=== PATIENT | female | born 1965 | race Caucasian/White ===

== ENCOUNTER 2018-01-05 05:37 | Inpatient (IN) ==
[2018-01-05] MEDS ORDERED: Lactated Ringers 1,000 ML PRIMARY IV ONE ×2 (05:55→06:00)
[2018-01-05] MEDS ORDERED: LIDOCAINE W/ SODIUM BICARB 0.5 ML SYR ONE (05:55)
[2018-01-05] MEDS ORDERED: ceFAZolin Inj 2gm (Premix) 2 GM/50 ML BAG IV ONE ×2 (06:00→07:29)
[2018-01-05] MEDS ORDERED: Nasal Sanitizer POPSWAB ampule 3 AMP (Nozin) PREOP DOSE ENOS SCH (06:00)
[2018-01-05] MEDS ORDERED: LIDOCAINE W/ SODIUM BICARB 0.5 ML SYR SUBD ONE (06:00)
[2018-01-05] MEDS ORDERED: Vancomycin Inj 1gm vial ONE (06:10)
[2018-01-05] MEDS ORDERED: Sodium Chloride 0.9% 250 ML ONE ×2 (06:10→06:11)
[2018-01-05] MEDS ORDERED: MIDAZOLAM 5 MG/1 ML ONE (07:15)
[2018-01-05] MEDS ORDERED: REMIFENTANIL 1 MG/1 ML IV ONE (07:16)
[2018-01-05] MEDS ORDERED: fentaNYL Inj 100 MCG/2 ML VIAL ONE (07:16)
[2018-01-05] MEDS ORDERED: LIDOCAINE MPF 2% - 5 ML (20 MG/1 ML) ONE (07:21)
[2018-01-05] MEDS ORDERED: Propofol 1,000 MG/100 ML VIAL IV ONE ×2 (07:23→08:53)
[2018-01-05] MEDS ORDERED: ePHEDrine Inj 50 MG/ML AMP ONE (07:48)
[2018-01-05] MEDS ORDERED: GLYCOPYRROLATE 0.2 MG/1 ML VIAL ONE (07:49)
[2018-01-05] MEDS ORDERED: BUPIVACAINE 0.25% W/ EPI - 10 ML VIAL ONE ×2 (08:15→08:43)
[2018-01-05] MEDS ORDERED: Sodium Chloride 0.9% vial 10 ML ONE (08:16)
[2018-01-05] MEDS ORDERED: PHENYLEPHRINE 10,000 MCG/1 ML VIAL ONE (08:16)
[2018-01-05] MEDS ORDERED: BACITRACIN 50,000 UNIT VIAL IRRIG ONE (08:16)
[2018-01-05] MEDS ORDERED: Hetastarch 6% + NS 500 ML IV ONE (08:32)
[2018-01-05] MEDS ORDERED: Ondansetron ODT Tab 8 MG TAB PO PRN (09:22)
[2018-01-05] MEDS ORDERED: ONDANSETRON 4 MG/2 ML VIAL IVP PRN ×3 (09:22→10:42)
[2018-01-05] MEDS ORDERED: LIDOCAINE W/ SODIUM BICARB 0.5 ML SYR SUBD PRN (09:22)
[2018-01-05] MEDS ORDERED: Prochlorperazine Edisylate Inj 10mg/2ml vial IVP PRN ×2 (09:22→10:42)
[2018-01-05] MEDS ORDERED: HYDROmorphone 2 MG/1 ML IVP PRN ×2 (09:22→10:42)
--- NOTE | 2018-01-05 09:27 | CRNA.PROGR ---
Anesthesia Time - Procedure/Recovery Time Start Date: 01/05/18 End Date: 01/05/18 Anesthesia : Time In: 07:36 Anesthesia : Time Out: 09:45 Anesthesia : Total Time: 129 - Total Anesthesia Time Total Anesthesia Time (minutes): 129 - Other Weight: 69.2 kg Height: 5 ft Body Mass Index (BMI): 29.7 Physical Status: P3 Anesthesia Type: General Anesthesia : ET, Other (NIMS monitoring so- Demetrio/ Propofol)
[2018-01-05] MEDS ORDERED: Lactated Ringers 1,000 ML PRIMARY IV SCH (09:30)
[2018-01-05] MEDS ORDERED: MAGNESIUM 400 MG/5 ML - 30 ML (MILK OF MAGNESIA) PO PRN ×2 (09:45→10:42)
[2018-01-05] MEDS ORDERED: MAGNESIUM CITRATE 296 ML SOLUTION PO PRN ×2 (09:45→10:42)
[2018-01-05] MEDS ORDERED: PROMETHAZINE 25 MG/1 ML VIAL IM PRN ×2 (09:45→10:42)
[2018-01-05] MEDS ORDERED: HYDROmorphone 2 MG TABLET PO PRN ×5 (09:45→19:13)
[2018-01-05] MEDS ORDERED: Vancomycin-PHA to Dose IV SCH ×2 (09:45→10:45)
[2018-01-05] MEDS ORDERED: Ondansetron ODT Tab 4 MG TAB PO PRN ×2 (09:45→10:42)
[2018-01-05] MEDS ORDERED: Metoclopramide Inj 10 MG/2 ML VIAL IVP PRN ×2 (09:45→10:42)
[2018-01-05] MEDS ORDERED: ceFAZolin Inj 1 GM in Sodium Chloride 0.9% 100 ML IV SCH (09:45)
[2018-01-05] MEDS ORDERED: BISACODYL 5 MG TABLET PO PRN ×2 (09:45→10:42)
[2018-01-05] MEDS ORDERED: Fleet Enema 133ml RECTAL PRN ×2 (09:45→10:42)
[2018-01-05] MEDS ORDERED: DOCUSATE 100 MG CAPSULE PO PRN ×2 (09:45→10:42)
[2018-01-05] MEDS ORDERED: ACETAMINOPHEN 325 MG TABLET PO PRN ×2 (09:45→10:42)
--- NOTE | 2018-01-05 10:34 | GEN.OPNOTE ---
Operative Note Surgery Date: 01/05/18 Preoperative Diagnosis: Left sacroilitis/Left SI joint dysfunction Postoperative Diagnosis: Same Procedure: Left percutaneous SI joint fusion using SI Bone system (CPT code: 79511) Surgeon: Umesh Bernardo MD [employer] Supervisor: SUDHIR You Anesthesia Provider: Lilly Molina CRNA Anesthesia Type: General Estimated Blood Loss (mL): 5 Fluids: See Anesthesia Operative Report Pathology: None Indications: Left sacroilitis/Left SI joint dysfunction. Findings: None Complications: None Operative Summary: Ms. Hanley was met in the preoperative area. Her surgical history and physical was updated. The procedure to be performed was confirmed with Ms. Hanley and family members. This matched what was written on the patient's consent form. Any questions that Ms. Hanley or family members had were answered before she was taken back to the operating room suite. Ms. Hanley was brought back to the operating room suite. She was put under general anesthesia and intubated by the anesthesia staff. She had a Romano catheter placed or bladder for the procedure. She had pneumatic compression hose placed on her lower legs bilaterally. She was rolled over onto the Skytron bed in a prone position onto blanket rolls. Her arms were gently positioned upwards with her shoulders abducted less than 90. Her arms were well-padded with foam padding on top of the padding of the surgical armboards. The region of her chest and axilla was checked bilaterally to make sure that there were no pressure points over the region of the brachial plexus bilaterally. Her breasts were checked be below the chest roll with no pressure points over the nipples. Her Romano catheter was checked be free from kinks. Her pneumatic compression hose was attached to a pneumatic compression device. The C-arm fluoroscopy unit was used to help localize the skin incision for the approach the intended surgical procedure. A line was drawn on the skin parallel and over the sacral alar and another line was drawn essentially perpendicular to this along the midline of the upper to mid sacrum. The's intended skin incision was marked along the second line approximately 1 cm dorsal and caudal to the intersection of the 2 lines and extending 3 cm along that line. Ms. Hanley was prepped and draped in the usual and standard fashion. She was given 2 g of Ancef and 1 g of vancomycin IV for perioperative antibiosis. The intended skin incision was injected subcutaneously with quarter percent Marcaine with 1 in 200,000 epinephrine. 18 mL of local anesthetic was used. The incision was incised with a 10 blade scalpel and all dermal and superficial subcutaneous bleeding points coagulated with bipolar cautery. The first shot sharp guidepin was advanced to the lateral aspect of the ilium. This guidepin was positioned appropriately for the placement of the first cage placement using multiple Spot fluoroscopy. Once in proper position the guidepin was advanced into the ilium gently with a mallet. An inlet view fluroscopic image was then obtained to confirm the proper checked trajectory for the advancement of the guidepin across the SI joint. The guidepin was then advanced across the SI joint using multiple Spot spot fluoroscopy images in outlet view. The soft tissue dissector was then used to dissect the soft tissue over the guidepin down to the lateral aspect of the ilium. The cage was then sized with the "credit card" measurement device. The soft tissue protector was then placed over the guidepin and advanced to the lateral aspect of the ilium. The drill was then placed over the guidepin and drilling was performed to just past the SI joint into the lateral aspect of the sacrum under multiple Spot fluoroscopic images. The broach was then placed over the guidepin and the broach was gently tapped across the SI joint using the mallet. The appropriate size cage, a 7mm x 50 mm SI Bone titanium cage was then selected and filled with Ann BIO DBM plus putty with cancellous chips. The cage was then advanced over the guidewire and gently tapped into appropriate position under multiple spot fluoroscopic images in the outlet view. The cage obtained good purchase in the iliac and sacral bone across the sacroiliac joint. Final views of the cage were taken in the lateral inlet and outlet views. The guidepin locater for the placement of the second guidepin was then placed over the first guidepin. The second guidepin was then advanced to the lateral aspect of the sacrum. The entry point for the second guidepin was then localized under multiple Spot lateral fluoroscopic images. This guidepin was then gently advanced into the lateral aspect of the ilium using the mallet with gentle taps. An inlet view was used to confirm the appropriate trajectory across the SI joint prior to advancing the second guidepin further. Once the proper trajectory was assured in the inlet view the second guidepin was advanced across the sacroiliac joint under multiple Spot fluoroscopic images in the outlet view. Once advanced to its final desired position the soft tissue dissector was then placed over the second guidepin and advanced to the lateral aspect of the ilium and the soft tissue was dissected. The soft tissue protector was then placed over the guidepin and advanced to the lateral aspect the ilium. The appropriate size for the second cage was then measured. The hand-held drill was then used to drill just across the SI joint which was performed under multiple spot fluoroscopic images. The broach was then gently tamped across the SI joint using multiples fluoroscopic images. The appropriate size cage, a 7 mm x 45 mm SI bone titanium cage was selected and filled with OxThera BIO DBM plus putty with cancellous chips. The cage was then advanced over the guidepin and gently tapped into its final position under multiple Spot fluoroscopic images. The cage obtained good purchase in the iliac and sacral bone across the sacral iliac joint. Final fluoroscopic images were taken of the cage and lateral inlet and outlet views. Although placement of the third cage was considered, it was decided by looking at the imaging studies that there was no room for the placement of a third cage and since the first two cages obtained good purchase across the sacroiliac joint it was felt that good fixation of the sacroiliac joint had been obtained with the two cages placed. The surgical site was copiously irrigated with bacitracin irrigation. The closure portion of the procedure was then begun. The superficial subcutaneous tissue and dermis was closed with 2-0 Vicryl suture in an interrupted fashion. The Ioban drape was pulled back the skin edges and the final layer of closure was performed with surgical stainless steel jose. The incision was cleansed with bacitracin soaked sponge and dried with sterile dry sponge and then covered with a Mepilex dressing. All surgical drapes removed from Ms. Hanley. She was carefully rolled over onto the PACU stretcher. She was taken the recovery room in stable condition. All surgical counts reported as correct by the scrub and circulating personnel.
[2018-01-05] MEDS: HYDROmorphone 2 MG/1 ML IVP PRN ×2 (10:53→15:06)
--- NOTE | 2018-01-05 12:20 | CONSULT ---
Consult Note - Consult Reason for Consult: PostOp Consulation : Neuro Requesting Physician: rupinder Primary Care Provider: CHASE ARROYO - History of Present Illness History of Present Illness: This very nice 52-year-old female status post back surgery SI joint fusion, by Dr. Bernardo hospitalist service was consulted for chronic medical issues. She is complaining of back pain she did receive 2 mg of by mouth Dilaudid also she is hypotensive. Past Medical History Medical History: Elevated cholesterol, chronic pain, coronary artery disease, seizure disorder Tobacco Use: Former Smoker In the Past 12 Months, Have Used or Abuse Any of the Following Substance: None Review of Systems - Review of Systems All Systems: Reviewed & No Additional Complaints Except as Stated - Cardiovascular Cardiovascular: DENIES: Negative System Review, Chest Pain, Edema, Syncope, Palpitations, Orthopnea, Paroxysmal Nocturnal Dyspnea, Other, See HPI - Gastrointestinal Gastrointestinal / Abdominal: DENIES: Negative System Review, Nausea, Vomiting, Diarrhea, Constipation, Abdominal Pain, Bloody Stool, Poor Appetite, Heartburn, Regurgitation, Bloating, Lactose Intolerance, Melena, Bright Red Blood per Rectum, Other, See HPI - Musculoskeletal Musculoskeletal: REPORTS: Back Pain Medication / Allergies Home Medications: Home Medications 3 Medication Instructions Recorded Confirmed Type aspirin 81 mg tablet,delayed 81 mg PO QDAY 12/07/17 01/05/18 History release atorvastatin 80 mg tablet 80 mg PO QDAY 12/07/17 01/05/18 History gabapentin 400 mg capsule 400 mg PO TID 12/07/17 01/05/18 History lamotrigine 100 mg tablet 100 mg PO BID 12/07/17 01/05/18 History metoprolol tartrate 25 mg tablet 25 mg PO BID 12/07/17 01/05/18 History multivitamin,sr-lsal-egldsbrt 1 tab PO QDAY 12/07/17 01/05/18 History tablet trazodone 150 mg tablet 150 mg PO QDAY 12/07/17 01/05/18 History Allergies/Adverse Reactions: Allergies 3 Allergy/AdvReac Type Severity Reaction Status Date / Time tramadol Allergy Severe HIVES Verified 01/05/18 08:00 acetaminophen [From Percocet] Allergy HIVES Verified 01/05/18 08:00 betamethasone Allergy NOT Verified 01/05/18 08:00 [From Celestone] APPLICABLE fentanyl Allergy SWELLING Verified 01/05/18 08:00 morphine Allergy SWELLING Verified 01/05/18 08:00 oxycodone [From Percocet] Allergy HIVES Verified 01/05/18 08:00 cephalexin [From Keflex] AdvReac NOT Verified 01/05/18 08:00 APPLICABLE Exam - Vitals Vital Signs: Vital Signs Temperature 96.1 F Temperature Source Temporal Artery Scan Pulse Rate [Pulse Oximeter] 68 Pulse Rate 73 Respiratory Rate 20 Blood Pressure [Left Arm] 87/43 Blood Pressure 95/52 Pulse Ox 93 Oxygen Flow Rate 3.5 Oxygen Delivery Method Nasal Cannula Height 5 ft Weight 152 lb 8.958 oz - General General Appearance: Mild Distress - Head Head Exam: Normal Inspection, Normocephalic, Atraumatic - Eye Eye Exam: POSITIVE: Normal Appearance, PERRL, EOMI, No Scleral Icterus - Respiratory Respiratory Exam: POSITIVE: Clear to Auscultation - Bilaterally, Breathing Non Labored, Normal To Percussion, Normal to Percussion and Palpation - Cardiovascular Cardiovascular Exam: POSITIVE: RRR, No Murmur, No Clicks, No Gallops, No Rubs, PMI Non-Displaced - GI/Abdominal GI/Abdominal Exam: POSITIVE: Normal Bowel Sounds, Non Tender, Non Distended, Soft, No Masses, No Hepatomegaly, No Splenomegaly, No Organomegaly - Extremities Extremities Exam: POSITIVE: No Clubbing Present, No Edema Present Assessment and Plan - Patient Problems (1) Chronic low back pain with left-sided sciatica Current Visit: No Status: Chronic Comment: Status post lower back surgery by Dr. Bernardo defer to Dr. Bernardo for PT OT orders and other orders involving the surgery and pain control. We' ll write for Toradol 15 mg every 6 would not do more narcotics since that she is hypotensive until Dr. Bernardo is a chance to come and see her for her pain management Code(s): M54.42 - Lumbago with sciatica, left side; G89.29 - Other chronic pain (2) Heart disease Current Visit: No Status: Chronic Comment: Check troponin continue beta chloe and statin Code(s): I51.9 - Heart disease, unspecified (3) High cholesterol Current Visit: No Status: Chronic Comment: Continue statin Code(s): E78.00 - Pure hypercholesterolemia, unspecified (4) Seizure Current Visit: No Status: Chronic Comment: Continue Lamictal Code(s): R56.9 - Unspecified convulsions (5) Hypotension Current Visit: Yes Status: Acute Comment: 1 L saline bolus Code(s): I95.9 - Hypotension, unspecified
[2018-01-05] MEDS ORDERED: Sodium Chloride 0.9% 1,000 ML PRIMARY IV ONE ×2 (12:39→13:06)
[2018-01-05] MEDS ORDERED: KETOROLAC 15 MG/1 ML VIAL IVP ONE (13:33)
--- NOTE | 2018-01-05 13:33 | CRNA.PROGR ---
Post Anesthesia Phase II - Post Anesthesia Phase II Care Assumed By Surgeon: Umesh Bernardo MD Temperature: 96.1 F Pulse Rate: 73 Respiratory Rate: 20 Blood Pressure: 95/52 Pulse Ox: 93 Total Jailene Score at Discharge: 9 Post Anesthesia Discharge Criteria Met: Yes
[2018-01-05 13:47] LABS: BASOPHILS # (AUTO) 0 10*3/UL; BASOPHILS % (AUTO) 0 % (0-1); EOSINOPHILS # (AUTO) 0.03 10*3/UL; EOSINOPHILS % (AUTO) 0.5 % (0-8); Hematocrit [HCT] 35.4 % (37.0-47.0); Hemoglobin [HGB] 11.4 g/dL (12.0-16.0); MEAN CORPUSCULAR HEMOGLOBIN 31.6 PG (27-31); MEAN CORPUSCULAR HGB CONC 32.2 g/dL (33-37); MEAN CORPUSCULAR VOLUME 98.1 FL (81-99); MEAN PLATELET VOLUME 11.5 FL (7.4-12.2); MONOCYTES # (AUTO) 0.05 10*3/UL (0.3-0.8); MONOCYTES % (AUTO) 0.8 % (5-15); NEUTROPHILS # (AUTO) 5.11 10*3/UL; NEUTROPHILS % (AUTO) 83.9 % (50-80); RED BLOOD COUNT 3.61 10^6/uL (4.20-5.40)
[2018-01-05 13:59] LABS: BLOOD UREA NITROGEN 10 mg/dL (7-22); SERUM ALBUMIN 2.7 g/dL (3.5-4.8)
[2018-01-05 14:02] LABS: PLATELET MORPHOLOGY COMMENT NORMAL MORPHOLOGY (NORM); RBC MORPHOLOGY COMMENT NORMAL MORPHOLOGY (NORM); WBC MORPHOLOGY COMMENT NORMAL MORPHOLOGY (NORM)
[2018-01-05] MEDS ORDERED: KETOROLAC 15 MG/1 ML VIAL IVP SCH (14:30)
[2018-01-05] MEDS ORDERED: Magnesium Sulfate 2gm (Premix) 2 GM/50 ML BAG IV ONE (16:05)
[2018-01-05] MEDS: GABAPENTIN 400 MG CAPSULE PO SCH ×2 (16:36→21:08)
[2018-01-05] MEDS: ceFAZolin Inj 1 GM in Sodium Chloride 0.9% 100 ML IV SCH (16:36)
[2018-01-05] MEDS ORDERED: Acetaminophen 1000mg Inj 1,000 MG/100 ML VIAL IV PRN (17:00)
--- NOTE | 2018-01-05 19:21 | NEURO.PROG ---
Subjective Post Op Day: 0 Pain Management: IV Romano Catheter: No Diet: Regular Ambulating: No Additional Details: Awake and alert. Moving all extremities. Pain medication wearing off before next dose. PLAN: Change Dilaudid 1-2mg every 6 hours prn to Dilaudid 2mg every 4 hours prn. Continue Dilaudid 0.5-1.0 mg IV every four hours for breakthrough pain. Objective : Data - Labs CBC and BMP: 01/05/18 13:42 01/05/18 13:42 - Vital Signs Vital Signs and I&O: Vital Signs - Last Taken Temperature 98.7 F 01/05/18 17:31 Pulse Rate 92 01/05/18 17:31 Respiratory Rate 22 01/05/18 17:31 Blood Pressure 111/58 01/05/18 17:31 Pulse Ox 93 01/05/18 17:31 Intake and Output (24hr x 4 totals) 01/03/18 01/04/18 01/05/18 01/06/18 05:59 05:59 05:59 05:59 Intake Total 3840 / 3840 Output Total 575 / 575 Balance 3265 / 3265
[2018-01-05] MEDS ORDERED: ATORVASTATIN 40 MG TABLET PO SCH (21:00)
[2018-01-05] MEDS ORDERED: traZODone Tab 50 MG TAB PO SCH (21:00)
[2018-01-05] MEDS: lamoTRIgine 100 MG TABLET PO SCH (21:08)
[2018-01-05] MEDS: Metoprolol TARTRATE Tab 25 MG TAB PO SCH (21:11)
[2018-01-05] MEDS: HYDROmorphone 2 MG TABLET PO PRN (21:39)
[2018-01-06] MEDS: ceFAZolin Inj 1 GM in Sodium Chloride 0.9% 100 ML IV SCH (00:09)
[2018-01-06] MEDS: HYDROmorphone 2 MG TABLET PO PRN ×2 (01:29→08:25)
[2018-01-06] MEDS: HYDROmorphone 2 MG/1 ML IVP PRN (04:11)
[2018-01-06 04:58] LABS: BASOPHILS # (AUTO) 0.01 10*3/UL; BASOPHILS % (AUTO) 0.2 % (0-1); EOSINOPHILS # (AUTO) 0.13 10*3/UL; EOSINOPHILS % (AUTO) 2.5 % (0-8); Hematocrit [HCT] 36.3 % (37.0-47.0); Hemoglobin [HGB] 11.4 g/dL (12.0-16.0); LYMPHOCYTES # (AUTO) 1.34 10*3/uL; MEAN CORPUSCULAR HEMOGLOBIN 31.3 PG (27-31); MEAN CORPUSCULAR HGB CONC 31.4 g/dL (33-37); MEAN CORPUSCULAR VOLUME 99.7 FL (81-99); MEAN PLATELET VOLUME 12.3 FL (7.4-12.2); MONOCYTES # (AUTO) 0.27 10*3/UL (0.3-0.8); MONOCYTES % (AUTO) 5.2 % (5-15); NEUTROPHILS # (AUTO) 3.43 10*3/UL; NEUTROPHILS % (AUTO) 66.1 % (50-80); RED BLOOD COUNT 3.64 10^6/uL (4.20-5.40)
[2018-01-06 05:11] LABS: BLOOD UREA NITROGEN 4 mg/dL (7-22)
[2018-01-06 05:20] LABS: PLATELET MORPHOLOGY COMMENT NORMAL MORPHOLOGY (NORM); RBC MORPHOLOGY COMMENT NORMAL MORPHOLOGY (NORM); WBC MORPHOLOGY COMMENT NORMAL MORPHOLOGY (NORM)
--- NOTE | 2018-01-06 05:20 | PDOC(PROG) ---
Interval History: Patient has seen this morning she is doing well her blood pressure the is controlled no chest pain no nausea she states that Dr. Bernardo saw her this morning and stated that she could be discharged home from his standpoint Objective : Data - Labs CBC and BMP: 01/06/18 04:12 01/06/18 04:12 Objective : Exam - Respiratory Respiratory Exam: Clear to Auscultation - Bilaterally, Breathing Non Labored, Normal To Percussion, Normal to Percussion and Palpation - Cardiovascular Cardiovascular Exam: RRR, No Murmur, No Clicks, No Gallops, No Rubs, PMI Non- Displaced - GI/Abdominal GI/Abdominal Exam: Normal Bowel Sounds, Non Tender, Non Distended, Soft, No Masses, No Hepatomegaly, No Splenomegaly, No Organomegaly Assessment and Plan - Patient Problems (1) Chronic low back pain with left-sided sciatica Current Visit: No Status: Chronic Comment: Deferred Dr. Bernardo for discharge instructions and pain prescription' s note says that she could be discharged from the neurosurgery standpoint Code(s): M54.42 - Lumbago with sciatica, left side; G89.29 - Other chronic pain (2) Heart disease Current Visit: No Status: Chronic Comment: Stable Code(s): I51.9 - Heart disease, unspecified (3) High cholesterol Current Visit: No Status: Chronic Comment: Continue statin Code(s): E78.00 - Pure hypercholesterolemia, unspecified (4) Seizure Current Visit: No Status: Chronic Comment: Continue Lamictal Code(s): R56.9 - Unspecified convulsions (5) Hypotension Current Visit: Yes Status: Acute Comment: This is resolved IV fluid bolus resuscitation Code(s): I95.9 - Hypotension, unspecified - Assessment / Plan Additional Assessment/Plan Details: Blood pressures now stable continue home meds in regards to medical issues. Instructions for her postop neurosurgery instructions will be deferred to Dr. Bernardo
--- NOTE | 2018-01-06 05:25 | NEURO.PROG ---
Subjective Post Op Day: 1 Pain Management: PO Romano Catheter: No Diet: Regular Ambulating: Yes Additional Details: Awake and alert. Good movement and strength all extremities. Romano out. Eating/drinking. Ambulating well; partial weight bear on left leg. Post-operative pain controlled with PO Dilaudid (no allergic reactions). Plan: Okay for discharge to home from neurosurgery standpoint. Will e-scribe pain medications to [facility]. F/U - [facility]; January 21, patient will be called with time. Objective : Data - Labs CBC and BMP: 01/05/18 13:42 01/06/18 04:12 - Vital Signs Vital Signs and I&O: Vital Signs - Last Taken Temperature 98.7 F 01/06/18 04:35 Pulse Rate 99 01/06/18 04:35 Respiratory Rate 20 01/06/18 04:35 Blood Pressure 128/50 01/06/18 04:35 Pulse Ox 94 01/06/18 04:35 Intake and Output (24hr x 4 totals) 01/03/18 01/04/18 01/05/18 01/06/18 05:59 05:59 05:59 05:59 Intake Total 6919 / 6919 Output Total 2275 / 2275 Balance 4644 / 4644
[2018-01-06] MEDS ORDERED: PANTOPRAZOLE 40 MG TABLET PO SCH ×2 (07:00)
[2018-01-06 07:10] VITALS: BP 129/58; RESP 18; TEMP 99.9; O2SAT 93
[2018-01-06] MEDS: Metoprolol TARTRATE Tab 25 MG TAB PO SCH (08:17)
[2018-01-06] MEDS: GABAPENTIN 400 MG CAPSULE PO SCH (08:17)
[2018-01-06] MEDS: lamoTRIgine 100 MG TABLET PO SCH (08:17)
[2018-01-06] MEDS ORDERED: ASPIRIN EC 81 MG TABLET PO SCH (09:00)
--- NOTE | 2018-01-06 14:12 | PTI REPORT ---
Thank you for the referral of Isaura Hanley. She was seen on 01/05/18 for an inpatient evaluation status post left SI joint fusion. SUBJECTIVE: The patient is a 52-year-old female. Prior to speaking with the patient, the therapist spoke with nursing and the patient was having an extreme amount of pain, requiring an increase in Dilaudid medication with approval from Dr. Bernardo. When speaking with the patient, the patient reports she has had two prior back surgeries back in 1990 as well as 2016 as well as a stroke in 2014. She states she is willing to try to get up for physical therapy after her Dilaudid injection. The patient reports she lives in [place] with her live-in boyfriend. She has six stairs to get in and out of her house and does have a banister. PAST MEDICAL HISTORY: Past medical history can be found in the patient's medical record. OBJECTIVE FINDINGS: Pain: The patient reported a pain level at worst before her Dilaudid at 15/10 on the verbal analog scale (0=no pain, 10=worst pain); however, currently it is an 8/10. Bed mobility: She was able to perform appropriate log rolling both in and out of bed with stand by assistance. Brace fitting: She required visual, verbal, and tactile cues for proper brace fitting the first time, and then she was able to perform appropriate return demonstration of donning and doffing her brace. Ambulation: The patient was able to ambulate within her room approximately 5 minutes with occasional rest breaks with a standard walker, back brace, and left lower extremity partial weight-bearing due to her fusion. Precautions: The patient was also verbally instructed in no bending, lifting, twisting, and no lifting over 5 lbs as well as active bilateral lower extremity nerve glides and proper log rolling techniques. ASSESSMENT: Problem List: Uncontrolled pain Decreased bed mobility Decreased ability to ambulate Decreased ability to ascend/descend stairs Physical Therapy Goals: To be met by discharge from inpatient: Patient will be able to don and doff her back brace independently and appropriately. Patient will be able to ambulate up to 100 feet for household ambulation. Patient will be able to ascend and descend 7 stairs, maintaining partial weight- bearing in order to return home safely. Patient will verbalize understanding and present demonstration in her restrictions of no B/L/T and no lifting over 5 pounds. TREATMENT PLAN: Patient will be seen B.I.D during the week and one time per day over the weekend as an inpatient to address the above goals and objectives. INITIAL TREATMENT: Treatment today consisted of the initial evaluation as well as issuing the patient a standard walker. The patient was educated on bed mobility for log rolling, donning and doffing back brace, and gait training, maintaining partial weight-bearing on the left lower extremity while ambulating with her back brace on. The patient was also educated on bilateral lower extremity nerve glides. We will continue with further ambulatory activities tomorrow morning as well as ascending and descending stairs, maintaining partial weight-bearing. ANDREW
--- NOTE | 2018-01-06 15:07 | PT AM DAY ---
Diagnosis : Status Post Left SI Joint Fusion AM - Physical Therapy S: The patient reports she has been told that as soon as she's cleared from both OT and PT that she may go home. She also states that Dr. Bernardo came in and talked to her and states that she does not need a back brace, stating that she has one at home. She does not want to take the standard walker home with her either. O: Upon listening to the patient's subjective comments, specifically about the brace, the therapist contacted Kelin with Dr. Bernardo's office and received verbal confirmation via Kelin from Dr. Bernardo that with his SI joint fusion patients, a back brace is not needed; however, if you look in the PT orders for the consult, it did say a brace fitting. This was relayed to Dr. Bernardo's office. When the therapist spoke with the patient, she relayed that the patient does not have to wear either the back brace that was issued to her or the back brace that she has at home due to just having an SI joint fusion. The therapist did relay the concerns about using a standard walker when it came to gait training with stairs which is what was performed today. The patient was able to ambulate from her room all the way to the stairwell with her boyfriend in accompaniment. She was able to ascend and descend stairs with standard walker, gait belt, and partial weight-bearing on the left lower extremity utilizing the handrail and the walker specifically for ascending and descending stairs and just the walker on flat surfaces. A: The patient was re-educated that no back brace is required with her type of fusion; however, she will take the standard walker for the purpose of safety with maintaining partial weight-bearing and ascending and descending stairs. P: Patient is discharged and appropriate to go home. ANDREW
--- NOTE | 2018-01-06 15:30 | OTI REPORT ---
Thank you for the referral of Isaura Hanley. She was seen on 01/06/18 for an occupational therapy inpatient evaluation status post left SI joint fusion. SUBJECTIVE: The patient is a 52-year-old female. The patient lives in [place], [place]. She lives with her in a bi-level home. The patient is not currently working. The patient reports that she has six stairs to the entrance of her home with a handrail on one side. The patient has a four wheeled walker at home ; however, the patient was issued a standard walker by PT yesterday as she is partial weight-bearing on the left lower extremity. The patient would like to discharge to home. The patient reports in 2014 she had a CVA and she has had some right sided arm and hand residual weakness and coordination issues. In October of 2016 she had a lumbar fusion and this week she had the left sided SI joint fusion. PAST MEDICAL HISTORY: Past medical history can be found in the patient's medical record. OBJECTIVE FINDINGS: General observations: The patient does not have to wear a back brace per Dr. Bernardo. The patient was sitting in the recliner chair upon the therapist's arrival. Activities of daily living: The patient was issued a solution sales senior executive, sock aide, and long handled bath sponge as she is on precautions for no bending, lifting, twisting. The patient demonstrated the ability to don socks with modified independence with instruction and use of a sock aide. She donned lower extremity shorts with use of a solution sales senior executive with modified independence. She completed upper extremity dressing tasks with set up assistance. The patient also demonstrated the ability to complete a toileting task with stand by assistance. Ambulation: She demonstrated the ability to complete functional mobility tasks including ambulating x15 feet with stand by assistance while maintaining partial weight-bearing precautions. ASSESSMENT: Problem List: Decreased ability to complete lower extremity dressing Short-Term Goals: To be met by discharge from inpatient: Patient will be able to complete lower extremity dressing with modified independence. Patient will be able to complete upper extremity dressing with set up assistance. Long-Term Goals: To be met following discharge from inpatient: Patient will be able to return home. TREATMENT PLAN: Patient will be seen for initial evaluation only as the patient has met all goals and will be discharged. INITIAL TREATMENT: Treatment today consisted of the initial evaluation only to include instruction in lower extremity dressing with the use of adaptive equipment. The patient was issued a solution sales senior executive, sock aide, and a long handled bath sponge. ANDREW
== END 2018-01-06 10:59 | disposition home or self-care (01) | DRG 460 ==
LOC: OPS 05:37 → MED/SURG 10:11
PROVIDERS: ADMIT Neurological Surgery; ATTEND Neurological Surgery